=== PATIENT | female | born 1980 | race American Indian/Alaskan Native ===

== ENCOUNTER 2017-11-25 10:46 | Emergency (ER) | payer SELFPAY ==
[2017-11-25 11:57] VITALS: BP 113/75
--- NOTE | 2017-11-25 13:09 | Emergency Department Report ---
ED Animal Bite HPI - General Chief Complaint: Animal Bite Stated Complaint: INSECT BITE TO LEFT SIDE FACE Time Seen by Provider: 11/25/17 12:54 Source: patient Mode of arrival: Ambulatory Limitations: No Limitations - History of Present Illness Initial Comments: Patient is a 37-year-old [place] female with no significant past medical history who is presenting with left facial pain. Patient states that approximate 5 days ago she woke up with a small area of erythema to the left face. This area was itchy at first but now has become painful and more widespread. Patient denies any other symptoms such as nausea vomiting diarrhea fevers or chills - Related Data Previous Rx's Medication Instructions Recorded Last Taken Type Doxycycline [Vibramycin] 100 mg PO Q12HR #14 capsule 11/25/17 Unknown Rx HYDROcodone/APAP 5-325 [[place] 1 each PO Q6HR PRN #12 tablet 11/25/17 Unknown Rx 5/325] Ibuprofen [Motrin] 600 mg PO Q8H PRN #20 tablet 11/25/17 Unknown Rx Allergies Allergy/AdvReac Type Severity Reaction Status Date / Time iodine Allergy Rash Verified 11/25/17 11:57 seafood Allergy Rash Uncoded 11/25/17 11:57 ED Review of Systems ROS: Stated complaint: INSECT BITE TO LEFT SIDE FACE Other details as noted in HPI Comment: All other systems reviewed and negative ED Past Medical Hx - Past Medical History Previous Medical History?: No - Surgical History Past Surgical History?: Yes Additional Surgical History: Ectopic 2002, Right breast lumpectomy - Social History Smoking Status: Current Every Day Smoker Substance Use Type: Alcohol, Non Opiate Pain - Medications Home Medications: Home Medications Medication Instructions Recorded Confirmed Last Taken Type Doxycycline [Vibramycin] 100 mg PO Q12HR #14 capsule 11/25/17 Unknown Rx HYDROcodone/APAP 5-325 [[place] 1 each PO Q6HR PRN #12 tablet 11/25/17 Unknown Rx 5/325] Ibuprofen [Motrin] 600 mg PO Q8H PRN #20 tablet 11/25/17 Unknown Rx ED Physical Exam - General Limitations: No Limitations General appearance: alert, in no apparent distress - Head Head exam: Present: atraumatic, normocephalic - Eye Eye exam: Present: normal appearance - ENT ENT exam: Present: mucous membranes moist - Neck Neck exam: Present: normal inspection - Respiratory Respiratory exam: Present: normal lung sounds bilaterally. Absent: respiratory distress - Cardiovascular Cardiovascular Exam: Present: regular rate, normal rhythm. Absent: systolic murmur, diastolic murmur, rubs, gallop - GI/Abdominal GI/Abdominal exam: Present: soft, normal bowel sounds - Extremities Exam Extremities exam: Present: normal inspection - Back Exam Back exam: Present: normal inspection - Neurological Exam Neurological exam: Present: alert, oriented X3 - Psychiatric Psychiatric exam: Present: normal affect, normal mood - Skin Skin exam: Present: warm, dry, intact, erythema (there is swelling edema and erythema in the left maxillary area underneath the patient's with mild warmth). Absent: rash ED Course Vital Signs 11/25/17 11:51 Temperature 97.8 F Pulse Rate 72 Respiratory 16 Rate Blood Pressure 113/75 O2 Sat by Pulse 99 Oximetry Critical care attestation.: If time is entered above; I have spent that time in minutes in the direct care of this critically ill patient, excluding procedure time. ED Disposition Clinical Impression: Facial cellulitis Disposition: DC-01 TO HOME OR SELFCARE Is pt being admited?: No Does the pt Need Aspirin: No Condition: Stable Instructions: Cellulitis (ED) Prescriptions: Doxycycline [Vibramycin] 100 mg PO Q12HR #14 capsule HYDROcodone/APAP 5-325 [[place] 5/325] 1 each PO Q6HR PRN #12 tablet PRN Reason: Pain Ibuprofen [Motrin] 600 mg PO Q8H PRN #20 tablet PRN Reason: Pain Referrals: PRIMARY CARE, [Primary Care Provider] - 3-5 Days Forms: Work/School Release Form(ED)
== END 2017-11-25 13:19 | disposition home or self-care (01) ==
LOC: ED 10:46
DX: L03.211 Cellulitis of face (principal); F17.200 Nicotine dependence, unspecified, uncomplicated; Z88.8 Allergy status to other drugs, medicaments and biological substances; Z91.013 Allergy to seafood
CPT/HCPCS: 99281

== ENCOUNTER 2019-10-25 16:50 | Emergency (ER) | payer SELFPAY ==
--- NOTE | 2019-10-25 18:35 | Event Note ---
ED Screening Note ED Screening Note: states she was doing a pole dancing class states she came down wrong on the foot c/o right foot pain and right ankle never injured before no PMHx allergy: shrimp states she was ambulatory initially This initial assessment/diagnostic orders/clinical plan/treatment(s) is/are subject to change based on patients health status, clinical progression and re- assessment by fellow clinical providers in the ED. Further treatment and workup at subsequent clinical providers discretion. Patient/guardian urged not to elope from the ED as their condition may be serious if not clinically assessed and managed. Initial orders include: XR of the right ankle and foot
--- NOTE | 2019-10-25 19:30 | XRay Report ---
RIGHT ANKLE 3 VIEWS INDICATION / CLINICAL INFORMATION: fall during pole dancing class, right foot/ankle COMPARISON: None available. FINDINGS: BONES / JOINT(S): No acute fracture or subluxation. No significant arthritis. SOFT TISSUES: No significant abnormality. ADDITIONAL FINDINGS: None. Signer Name: Tao Ramirez MD Signed: 10/25/2019 7:26 PM Workstation Name: [id number]
--- NOTE | 2019-10-25 19:31 | XRay Report ---
XR foot 3+V RT INDICATION / CLINICAL INFORMATION: fall during pole dancing class, right foot/ankle. COMPARISON: None available. FINDINGS: BONES/JOINT(S): No acute fracture or subluxation. No significant degenerative changes. SOFT TISSUES: No significant abnormality. ADDITIONAL FINDINGS: None. Signer Name: Ciro Melara MD Signed: 10/25/2019 7:27 PM Workstation Name: [id number]
[2019-10-25] MEDS ORDERED: IBUPROFEN 600 MG TAB PO ONE (21:40)
[2019-10-25] MEDS ORDERED: oxyCODONE /ACETAMINOPHEN 5-325MG TAB PO ONE (21:40)
--- NOTE | 2019-10-25 21:44 | Emergency Department Report ---
ED Lower Extremity HPI - General Chief Complaint: Extremity Injury, Lower Stated Complaint: RT FOOT INJURY Time Seen by Provider: 10/25/19 18:33 Source: patient Mode of arrival: Wheelchair Limitations: Physical Limitation - History of Present Illness Initial Comments: states she was doing a pole dancing class states she came down wrong on the foot c/o right foot pain and right ankle never injured before no PMHx allergy: shrimp states she was ambulatory initially -: Last night Injury: Foot: Right Type of Injury: inversion Place: home Severity: severe Severity scale (0 -10): 8 Improves With: immobilization Worsens With: weight bearing, movement, palpation Context: other (pole dancing landed wrong) Associated Symptoms: swelling, unable to bear weight - Related Data Previous Rx's Medication Instructions Recorded Last Taken Type DOXYCYCLINE Hyclate [Vibramycin] 100 mg PO Q12HR #14 capsule 11/25/17 Unknown Rx HYDROcodone/APAP 5-325 [[place] 1 each PO Q6HR PRN #12 tablet 11/25/17 Unknown Rx 5/325] Ibuprofen [Motrin] 600 mg PO Q8H PRN #20 tablet 11/25/17 Unknown Rx Ibuprofen [Motrin 600 MG tab] 600 mg PO Q8H PRN #30 tablet 10/25/19 Unknown Rx Allergies Allergy/AdvReac Type Severity Reaction Status Date / Time iodine Allergy Rash Verified 11/25/17 11:57 seafood Allergy Rash Uncoded 11/25/17 11:57 ED Review of Systems ROS: Stated complaint: RT FOOT INJURY Other details as noted in HPI Comment: All other systems reviewed and negative ED Past Medical Hx - Past Medical History Previous Medical History?: No - Surgical History Past Surgical History?: Yes Additional Surgical History: Ectopic 2002, Right breast lumpectomy - Social History Smoking Status: Never Smoker Substance Use Type: None - Medications Home Medications: Home Medications Medication Instructions Recorded Confirmed Last Taken Type DOXYCYCLINE Hyclate [Vibramycin] 100 mg PO Q12HR #14 capsule 11/25/17 Unknown Rx HYDROcodone/APAP 5-325 [[place] 1 each PO Q6HR PRN #12 tablet 11/25/17 Unknown Rx 5/325] Ibuprofen [Motrin] 600 mg PO Q8H PRN #20 tablet 11/25/17 Unknown Rx Ibuprofen [Motrin 600 MG tab] 600 mg PO Q8H PRN #30 tablet 10/25/19 Unknown Rx ED Physical Exam - General Limitations: Physical Limitation General appearance: alert, in no apparent distress - Head Head exam: Present: atraumatic, normocephalic - Eye Eye exam: Present: normal appearance - ENT ENT exam: Present: mucous membranes moist - Expanded Lower Extremity Exam Right Hip exam: Present: normal inspection Upper Leg exam: Present: normal inspection Knee exam: Present: normal inspection Lower Leg exam: Present: normal inspection Ankle exam: Present: normal inspection Foot/Toe exam: Present: full ROM, tenderness, swelling, erythema. Absent: laceration, deformity, crepidus, amputation, puncture wound Neuro vascular tendon exam: Present: no vascular compromise - Neurological Exam Neurological exam: Present: alert, oriented X3 - Psychiatric Psychiatric exam: Present: normal affect, normal mood - Skin Skin exam: Present: warm, dry, intact, normal color. Absent: rash ED Course Vital Signs 10/25/19 17:04 Temperature 98.3 F Pulse Rate 73 Respiratory 18 Rate Blood Pressure 120/80 O2 Sat by Pulse 99 Oximetry ED Lower Extremity MDM - Radiology Data Radiology results: report reviewed Patient: NANDO MACHADO MR#: [id number] : 1980 Acct:[id number] Age/Sex: 39 / F ADM Date: 10/25/19 Loc: ED Attending Dr: Ordering Physician: TEJAS GARCIA Date of Service: 10/25/19 Procedure(s): XR ankle 3+V RT Accession Number(s): [id number] cc: TEJAS GARCIA Fluoro Time In Minutes: RIGHT ANKLE 3 VIEWS INDICATION / CLINICAL INFORMATION: fall during pole dancing class, right foot/ankle COMPARISON: None available. FINDINGS: BONES / JOINT(S): No acute fracture or subluxation. No significant arthritis. SOFT TISSUES: No significant abnormality. ADDITIONAL FINDINGS: None. Signer Name: Tao Ramirez MD Signed: 10/25/2019 7:26 PM Workstation Name: [id number] Transcribed By: Dictated By: Tao Ramirez MD Electronically Authenticated By: Tao Ramirez MD Signed Date/Time: 10/25/191925 DD/ 24 TD/TT: - Medical Decision Making states she was doing a pole dancing class states she came down wrong on the foot c/o right foot pain and right ankle never injured before no PMHx allergy: shrimp states she was ambulatory initially X-ray of foot shows no acute abnormalities no fractures or subluxation. Patient be given Percocet and ibuprofen for pain management now and patient be discharged home in ibuprofen Albert bandage crutches and ice pack Critical care attestation.: If time is entered above; I have spent that time in minutes in the direct care of this critically ill patient, excluding procedure time. ED Disposition Clinical Impression: Sprain of foot, right Disposition: DC-01 TO HOME OR SELFCARE Is pt being admited?: No Does the pt Need Aspirin: No Condition: Stable Instructions: Foot Sprain (ED) Additional Instructions: Take ibuprofen as needed for pain and swelling, ice elevate rest and use crutches continue using Albert bandage. Lower orthopedic provider if symptoms persist or gets worse. Prescriptions: Ibuprofen [Motrin 600 MG tab] 600 mg PO Q8H PRN #30 tablet PRN Reason: Pain Referrals: NAY MACHADO MD [Staff Physician] - 3-5 Days Forms: Work/School Release Form(ED)
[2019-10-25 22:13] VITALS: BP 118/76
== END 2019-10-25 22:12 | disposition home or self-care (01) ==
LOC: ED 16:50
DX: S93.601A Unspecified sprain of right foot, initial encounter (principal); Z79.899 Other long term (current) drug therapy; X50.0XXA Overexertion from strenuous movement or load, initial encounter; Y93.89 Activity, other specified; Y92.89 Other specified places as the place of occurrence of the external cause; Y99.8 Other external cause status